=== PATIENT | male | born 1950 | race Caucasian/White ===

== ENCOUNTER 2022-06-20 13:20 | Outpatient (CLI) | payer MEDICARE, BC | END 2022-06-20 13:21 | disposition home or self-care (01) | LOC: BICCT 13:20 | PROVIDERS: ATTEND Anesthesiology Pain Medicine | DX: M54.50 Low back pain, unspecified (principal); M47.812 Spondylosis without myelopathy or radiculopathy, cervical region; M48.061 Spinal stenosis, lumbar region without neurogenic claudication | CPT/HCPCS: 72131 ==

== ENCOUNTER 2022-08-12 17:55 | Emergency (ER) | payer MEDICARE, BC ==
[2022-08-12 18:25] LABS: #Lymphocytes 0.6 thou/uL (1.20-3.40); #Monocytes 0.6 thou/uL (0.11-0.59); #Neutrophils 3.3 thou/uL (1.40-6.50); %Basophils 0.7 % (0.0-1.0); %Eosinophils 0.6 % (0.0-10.0); %Lymphocytes 13.9 % (21.0-51.0); %Monocytes 13.3 % (0.0-10.0); %Neutrophils 71.6 % (42.0-75.0); Hemoglobin 13.6 g/dL (14.0-18.0); Mean Corpuscular HGB CONC 35.5 g/dL (32.0-36.0); Mean Corpuscular Hemoglobin 33.7 pg (27.0-31.0); Mean Corpuscular Volume 94.9 fL (78.0-98.0); Mean Platelet Volume 6.7 fL (7.4-10.4); Platelet Count 155 thou/uL (130-400); RBC Distribution Width 11.6 % (11.5-14.5); Red Blood Cell (RBC) Count 4.05 mill/uL (4.70-6.10); White Blood Cell (WBC) Count 4.6 thou/uL (4.8-10.8)
[2022-08-12] MEDS ORDERED: Acetaminophen 500 MG TAB ONE (18:43)
[2022-08-12 18:47] LABS: ALT (SGPT) 20 U/L (8-55); AST (SGOT) 20 U/L (5-34); Albumin 3.9 g/dL (3.4-4.8); Alkaline Phosphatase 62 U/L (40-110); Anion Gap 13 mmol/L (10-20); BUN (Urea Nitrogen) 15 mg/dL (8.4-25.7); Bilirubin, Total 0.3 mg/dL (0.2-1.2); Calc. Creatinine Clearance 0 mL/min (70-130); Calcium 8.6 mg/dL (7.8-10.44); Carbon Dioxide 25 mmol/L (23-31); Chloride 101 mmol/L (98-107); Estimated GFR 75; Globulin 2.6 g/dL (2.4-3.5); Glucose 125 mg/dL (83-110); Potassium 4.2 mmol/L (3.5-5.1); Protein, Total 6.5 g/dL (5.8-8.1); Sodium 135 mmol/L (136-145)
[2022-08-12 20:29] LABS: Bacteria/HPF None Seen HPF (None Seen); Bilirubin Negative (Negative); Blood, Urine 1+ (Negative); Clarity Clear (Clear); Glucose, Urine (Dipstick) Normal (Negative); Ketone, Urine Negative (Negative); Leukocyte Negative Leu/uL (Negative); Nitrite Negative (Negative); Protein, Urine (Dipstick) 20 mg/dL (Neg-Trace); Specific Gravity, Urine 1.029 (1.002-1.036); Squamous Epithelial None Seen HPF (0-3); WBC/HPF 0-3 HPF (0-3); pH, Urine 5.5 (5.0-9.0)
[2022-08-12 20:55] LABS: SARS-CoV-2 NAA Rapid Test DETECTED (NotDetected)
== END 2022-08-12 21:22 | disposition home or self-care (01) ==
LOC: ERS 17:55
DX: U07.1 COVID-19 (principal); R31.9 Hematuria, unspecified; E11.9 Type 2 diabetes mellitus without complications; E78.5 Hyperlipidemia, unspecified; I10 Essential (primary) hypertension
CPT/HCPCS: 71045; 80053; 83605; 85025; 87040; 87086; 99284; U0002; 36415; 81003; 81015